=== PATIENT | male | born 2000 | race Caucasian/White ===

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

== ENCOUNTER 2022-01-18 18:00 | Emergency (ER) | payer SELFPAY | END 2022-01-18 20:43 | disposition home or self-care (01) | LOC: JD.ED 18:00 | DX: S70.12XA Contusion of left thigh, initial encounter (principal); F17.210 Nicotine dependence, cigarettes, uncomplicated; E66.9 Obesity, unspecified; Z68.41 Body mass index [BMI] 40.0-44.9, adult; W22.8XXA Striking against or struck by other objects, initial encounter | CPT/HCPCS: 73552-26-LT; 73552-LT; 99283; 99284 ==

== ENCOUNTER 2022-02-18 10:50 | Day surgery (SDC) | payer SELFPAY ==
[~2022-02-18 10:50] MED LIST: Lactated Ringers 1,000 ML IV SCH; Lidocaine 1%/Sod Bicarbonate in NS 8.4% 1 ML Syringe IDERM PRN; Sodium Chloride 0.9% 10 ML Syringe FLUSH PRN; Sodium Chloride 0.9% 10 ML Syringe FLUSH SCH
[2022-02-18] MEDS ORDERED: Propofol 200 MG/20 ML SDV ONE (12:28)
[2022-02-18] MEDS ORDERED: Lidocaine 1% 4 ML ONE (12:29)
[2022-02-18] MEDS ORDERED: fentaNYL 100 MCG/2 ML SDV ONE ×2 (12:30→14:12)
[2022-02-18] MEDS ORDERED: Midazolam 1 MG/ML 2 ML SDV ONE (12:30)
[2022-02-18] MEDS ORDERED: Ondansetron 4 MG/2 ML SDV ONE ×2 (12:50→14:17)
[2022-02-18] MEDS ORDERED: Bupivacaine 0.25% 10 ML SDV ONE (13:14)
[2022-02-18] MEDS ORDERED: ceFAZolin 2 GM Vial ONE ×2 (13:48→14:12)
[2022-02-18] MEDS ORDERED: Albuterol 0.083% 2.5 MG/3 ML Neb Soln NEB ONE (14:00)
== END 2022-02-18 16:21 | disposition home or self-care (01) ==
LOC: JD.SDS 10:50
PROVIDERS: ATTEND Orthopaedic Surgery
DX: S70.12XA Contusion of left thigh, initial encounter (principal); E66.9 Obesity, unspecified; F17.290 Nicotine dependence, other tobacco product, uncomplicated; Z79.891 Long term (current) use of opiate analgesic; Z79.899 Other long term (current) drug therapy; Z79.82 Long term (current) use of aspirin; W23.0XXA Caught, crushed, jammed, or pinched between moving objects, initial encounter
CPT/HCPCS: 27301; J0690; J2250; J2405; J2704; J3010; J3490; J7120; 00400

== ENCOUNTER 2022-03-05 10:23 | Day surgery (SDC) | payer SELFPAY ==
[~2022-03-05 10:23] MED LIST changes: +Albuterol 0.042% 1.25 MG/3 ML Neb Soln NEB PRN
[2022-03-05] MEDS ORDERED: Bupivacaine 0.25% 10 ML SDV ONE (10:52)
[2022-03-05] MEDS ORDERED: Ketorolac 30 MG/ML SDV ONE (11:14)
[2022-03-05] MEDS ORDERED: Lactated Ringers 1,000 ML ONE (11:14)
[2022-03-05] MEDS ORDERED: Propofol 200 MG/20 ML SDV ONE (11:14)
[2022-03-05] MEDS ORDERED: Ondansetron 4 MG/2 ML SDV ONE (11:14)
[2022-03-05] MEDS ORDERED: ceFAZolin 2 GM Vial ONE (11:14)
[2022-03-05] MEDS ORDERED: Midazolam 1 MG/ML 2 ML SDV ONE (11:15)
[2022-03-05] MEDS ORDERED: fentaNYL 100 MCG/2 ML SDV ONE ×2 (11:15→11:16)
[2022-03-05] MEDS ORDERED: Ketamine 500 mg/10 ML MDV ONE (11:15)
[2022-03-05] MEDS ORDERED: Albuterol 0.083% 2.5 MG/3 ML Neb Soln NEB PRN ×2 (11:19→12:17)
[2022-03-05] MEDS ORDERED: Metoclopramide 10 MG/2 ML SDV ONE (11:21)
[2022-03-05] MEDS ORDERED: fentaNYL 100 MCG/2 ML SDV IVPUSH PRN (12:17)
[2022-03-05] MEDS ORDERED: Ondansetron 4 MG/2 ML SDV IVPUSH PRN (12:17)
[2022-03-05] MEDS ORDERED: diphenhydrAMINE 50 MG/ML SDV IVPUSH PRN (12:17)
[2022-03-05] MEDS ORDERED: ePHEDrine 50 MG/ML SDV IVPUSH PRN (12:17)
[2022-03-05] MEDS ORDERED: Phenylephrine HCl In 0.9% NaCl 1 MG/10 ML Vial IVPUSH PRN (12:17)
[2022-03-05] MEDS ORDERED: HYDROmorphone 0.5 MG/0.5 ML Syringe IVPUSH PRN (12:17)
[2022-03-05] MEDS ORDERED: Vancomycin 1 GM SDV ONE (12:25)
[2022-03-05] MEDS ORDERED: Lidocaine 1% 50 ML MDV ONE (12:26)
== END 2022-03-05 14:13 | disposition home or self-care (01) ==
LOC: JD.SDS 10:23
PROVIDERS: ATTEND Orthopaedic Surgery
DX: S70.10XA Contusion of unspecified thigh, initial encounter (principal); F17.200 Nicotine dependence, unspecified, uncomplicated; E66.9 Obesity, unspecified; Z79.82 Long term (current) use of aspirin; Z79.899 Other long term (current) drug therapy; Z98.890 Other specified postprocedural states; Z68.41 Body mass index [BMI] 40.0-44.9, adult
CPT/HCPCS: 27301; J0690; J1885; J2001; J2250; J2405; J2704; J2765; J3010; J3370; J3490; J7120; 00400